=== PATIENT | female | born 1935 | race African-American/Black ===

== ENCOUNTER 2017-09-28 18:15 | Inpatient (IN) | payer MEDICARE, MEDICAID ==
[~2017-09-28] VITALS: Ht 160 cm; Wt 90.7 kg
[~2017-09-28 18:15] MED LIST: ACET-2853 PO; ALBU18HF2 IH; ALBU2.5V13 IH; ASCO500C15 PO; ATOR20TA PO; BUDE6HFA IH; CORTIZONE TP; CRAN450T10 PO; DIGO250T4 PO; DILTIAZEM; DOCU250C14 PO; FURO80TA87 PO; LISI10TA5 PO; MAGN500C4 PO; MONT10TA21 PO; MULT1TAB11 PO; ROFL500T PO; TIOT18CA3; TIOT18CA3 IH; TRIA15OI8 TP; WARF4TAB40 PO
[2017-09-28 20:00] VITALS: BP 148/60
[2017-09-28 20:10] VITALS: BP 148/60
[2017-09-28] MEDS: MIRTAZAPINE 15MG TABLET PO SCH (21:14)
[2017-09-28] MEDS: SILDENAFIL CITRATE 20MG TABLET PO SCH (21:14)
[2017-09-28] MEDS: FAMOTIDINE 20MG TABLET PO SCH (21:14)
[2017-09-28] MEDS: IPRATROPIUM/ALBUTEROL 0.5-3(2.5)MG/3ML NEB HHN SCH (21:20)
[2017-09-28] MEDS: DILTIAZEM HCL 90MG TABLET PO SCH (23:49)
[2017-09-29] MEDS: IPRATROPIUM/ALBUTEROL 0.5-3(2.5)MG/3ML NEB HHN SCH ×6 (00:24→21:46)
[2017-09-29] MEDS: SILDENAFIL CITRATE 20MG TABLET PO SCH ×3 (05:13→21:17)
[2017-09-29] MEDS: DILTIAZEM HCL 90MG TABLET PO SCH ×4 (05:14→23:41)
[2017-09-29 06:20] LABS: INR 2.1; PROTHROMBIN TIME 22.1 sec (9.4-11.6)
[2017-09-29 06:31] LABS: HEMATOCRIT 38.2 % (36.0-48.0); HEMOGLOBIN 12.1 g/dL (12.0-16.0); MEAN CORPUSCULAR HEMOGLOBIN 27.5 pg (28.0-32.0); MEAN CORPUSCULAR VOLUME 86.5 fL (81.0-99.0); PLATELET 275 x1000/uL (130-400); RED BLOOD CELL COUNT 4.42 mill/uL (4.2-5.4); RED CELL DISTRIBUTION WIDTH 15.7 % (11.6-14.6)
[2017-09-29 07:24] LABS: CHLORIDE 92 mEq/L (98-107)
[2017-09-29 07:39] LABS: PREALBUMIN 25.5 mg/dL (20.0-40.0)
[2017-09-29 08:00] VITALS: BP 130/58
[2017-09-29] MEDS ORDERED: PREDNISONE 20MG TABLET PO SCH (09:00)
[2017-09-29] MEDS: FISH OIL/OMEGA-3 FATTY ACIDS 1000MG CAPSULE PO SCH (09:08)
[2017-09-29] MEDS: ASCORBIC ACID 500 MG TABLET PO SCH (09:08)
[2017-09-29] MEDS: FUROSEMIDE 80MG TABLET PO SCH (09:08)
[2017-09-29] MEDS: FERROUS SULFATE 325MG TABLET PO SCH ×3 (09:08→17:42)
[2017-09-29] MEDS: PREDNISONE 20MG TABLET PO SCH (09:09)
[2017-09-29] MEDS: POTASSIUM CHLORIDE 20MEQ TABLET SR PO SCH (09:09)
[2017-09-29] MEDS: LORATADINE 10MG TABLET PO SCH (09:10)
[2017-09-29] MEDS: FAMOTIDINE 20MG TABLET PO SCH ×2 (09:10→21:17)
[2017-09-29] MEDS: ACETAMINOPHEN 650MG/20.3ML UDC PO PRN (16:01)
[2017-09-29] MEDS: WARFARIN SODIUM 4MG TABLET PO SCH (17:45)
[2017-09-29] MEDS: DIGOXIN 125MCG TABLET PO SCH (17:45)
[2017-09-29 20:00] VITALS: BP 145/50
[2017-09-29] MEDS: MIRTAZAPINE 15MG TABLET PO SCH (21:17)
[2017-09-30] MEDS: IPRATROPIUM/ALBUTEROL 0.5-3(2.5)MG/3ML NEB HHN SCH ×5 (01:51→21:45)
[2017-09-30] MEDS: SILDENAFIL CITRATE 20MG TABLET PO SCH ×3 (05:15→22:17)
[2017-09-30] MEDS: DILTIAZEM HCL 90MG TABLET PO SCH ×3 (05:16→17:15)
[2017-09-30 06:19] VITALS: BP 128/49
[2017-09-30 06:42] LABS: INR 2.4; PROTHROMBIN TIME 24.7 sec (9.4-11.6)
[2017-09-30 08:06] VITALS: BP 135/44
[2017-09-30] MEDS: FISH OIL/OMEGA-3 FATTY ACIDS 1000MG CAPSULE PO SCH (08:35)
[2017-09-30] MEDS: ASCORBIC ACID 500 MG TABLET PO SCH (08:35)
[2017-09-30] MEDS: FAMOTIDINE 20MG TABLET PO SCH ×2 (08:35→22:17)
[2017-09-30] MEDS: LORATADINE 10MG TABLET PO SCH (08:36)
[2017-09-30] MEDS: POTASSIUM CHLORIDE 20MEQ TABLET SR PO SCH (08:36)
[2017-09-30] MEDS: PREDNISONE 20MG TABLET PO SCH (08:36)
[2017-09-30] MEDS: FERROUS SULFATE 325MG TABLET PO SCH ×3 (08:36→16:29)
[2017-09-30] MEDS: FUROSEMIDE 80MG TABLET PO SCH (08:36)
[2017-09-30] MEDS: WARFARIN SODIUM 4MG TABLET PO SCH (17:16)
[2017-09-30] MEDS: DIGOXIN 125MCG TABLET PO SCH (17:17)
[2017-09-30 20:00] VITALS: BP 154/63
[2017-09-30] MEDS: MIRTAZAPINE 15MG TABLET PO SCH (22:17)
[2017-10-01] MEDS: IPRATROPIUM/ALBUTEROL 0.5-3(2.5)MG/3ML NEB HHN SCH ×6 (01:07→21:19)
[2017-10-01] MEDS: DILTIAZEM HCL 90MG TABLET PO SCH ×4 (06:00→17:24)
[2017-10-01] MEDS: SILDENAFIL CITRATE 20MG TABLET PO SCH ×3 (06:25→21:39)
[2017-10-01 06:45] LABS: INR 2.7; PROTHROMBIN TIME 27.8 sec (9.4-11.6)
[2017-10-01 06:58] LABS: CHLORIDE 90 mEq/L (98-107)
[2017-10-01 07:15] LABS: PHOSPHORUS 3.1 mg/dL (2.5-4.9)
[2017-10-01 07:24] LABS: HEMATOCRIT. 35.7 % (36.0-48.0); HEMOGLOBIN. 11.5 g/dL (12.0-16.0); MEAN CORPUSCULAR HEMOGLOBIN 27.8 pg (28.0-32.0); MEAN CORPUSCULAR VOLUME 86.8 fL (81.0-99.0); MEAN PLATELET VOLUME 8.9 fl (7.4-10.4); PLATELET 299 x1000/uL (130-400); RED BLOOD CELL COUNT 4.12 mill/uL (4.2-5.4); RED CELL DISTRIBUTION WIDTH 15.3 % (11.6-14.6)
[2017-10-01 07:27] LABS: BG CARBOXYHEMOGLOBIN 0.9 % (0.5-1.5); BG DEOXYHEMOGLOBIN 1.7 % (0.0-5.0); BG HCO3 ACT 47.6 mmol/L (22.0-26.0); BG METHEMOGLOBIN 0.3 % (0.0-1.5); BG OXYGEN SATURATION 98.3 % (92.0-98.5); BG OXYHEMOGLOBIN 97.1 % (94.0-97.0); BG PCO2 83.9 mmHg (35.0-45.0); BG PH 7.372 (7.350-7.450); BG PO2 108.3 mmHg (75.0-100.0); BG SAMPLE SITE RIGHT RADIAL; BG TOTAL HEMOGLOBIN 13.3 g/dL (12.0-18.0); BG VENT MODE NASAL CANNULA
[2017-10-01 08:00] VITALS: BP 145/60
[2017-10-01 08:20] LABS: VITAMIN B12 SERUM > 2000.0 pg/mL (211-911)
[2017-10-01] MEDS: PREDNISONE 20MG TABLET PO SCH (08:52)
[2017-10-01] MEDS: ASCORBIC ACID 500 MG TABLET PO SCH (08:53)
[2017-10-01] MEDS: FUROSEMIDE 80MG TABLET PO SCH (08:53)
[2017-10-01] MEDS: FERROUS SULFATE 325MG TABLET PO SCH ×3 (08:53→17:23)
[2017-10-01] MEDS: LORATADINE 10MG TABLET PO SCH (08:53)
[2017-10-01] MEDS: FAMOTIDINE 20MG TABLET PO SCH ×2 (08:53→21:39)
[2017-10-01] MEDS: FISH OIL/OMEGA-3 FATTY ACIDS 1000MG CAPSULE PO SCH (08:53)
[2017-10-01] MEDS: POTASSIUM CHLORIDE 20MEQ TABLET SR PO SCH (08:53)
[2017-10-01 10:20] LABS: FERRITIN 200 ng/mL (10-291)
[2017-10-01] MEDS: MUPIROCIN 2% OINT 22GM NS SCH ×2 (13:50→21:39)
[2017-10-01] MEDS: DIGOXIN 125MCG TABLET PO SCH (17:23)
[2017-10-01] MEDS ORDERED: WARFARIN SODIUM 4MG TABLET PO NR (18:00)
[2017-10-01 18:06] LABS: CLARITY URINE CLEAR (CLEAR); COLOR URINE YELLOW (YELLOW); KETONES URINE NEGATIVE (NEGATIVE); LEUKOCYTE ESTERASE URINE NEGATIVE (NEGATIVE); NITRITE URINE NEGATIVE (NEGATIVE); OCCULT BLOOD URINE 1+ (NEGATIVE); PROTEIN URINE 2+ (NEGATIVE); SPECIFIC GRAVITY URINE 1.022 (1.005-1.030); UROBILINOGEN URINE 0.2 E.U./dL (0.2-1.0)
[2017-10-01 20:00] VITALS: BP 113/48
[2017-10-01] MEDS: MIRTAZAPINE 15MG TABLET PO SCH (21:39)
[2017-10-02 01:00] LABS: PLATELET ESTIMATE NORMAL
[2017-10-02] MEDS: IPRATROPIUM/ALBUTEROL 0.5-3(2.5)MG/3ML NEB HHN SCH ×6 (01:00→21:15)
[2017-10-02] MEDS: DILTIAZEM HCL 90MG TABLET PO SCH ×3 (06:00→12:00)
[2017-10-02] MEDS: SILDENAFIL CITRATE 20MG TABLET PO SCH ×3 (06:45→22:08)
[2017-10-02 06:51] LABS: HEMATOCRIT. 35.6 % (36.0-48.0); HEMOGLOBIN. 11.1 g/dL (12.0-16.0); MEAN CORPUSCULAR HEMOGLOBIN 27.1 pg (28.0-32.0); MEAN CORPUSCULAR VOLUME 86.8 fL (81.0-99.0); PLATELET 300 x1000/uL (130-400)
[2017-10-02 06:56] LABS: INR 3.1; PROTHROMBIN TIME 32.8 sec (9.4-11.6)
[2017-10-02 07:15] LABS: CHLORIDE 89 mEq/L (98-107)
[2017-10-02 08:00] VITALS: BP 121/65
[2017-10-02] MEDS: FISH OIL/OMEGA-3 FATTY ACIDS 1000MG CAPSULE PO SCH (09:57)
[2017-10-02] MEDS: MUPIROCIN 2% OINT 22GM NS SCH ×2 (09:57→22:05)
[2017-10-02] MEDS: FAMOTIDINE 20MG TABLET PO SCH (09:57)
[2017-10-02] MEDS: POTASSIUM CHLORIDE 20MEQ TABLET SR PO SCH (09:57)
[2017-10-02] MEDS: PREDNISONE 20MG TABLET PO SCH (09:57)
[2017-10-02] MEDS: FERROUS SULFATE 325MG TABLET PO SCH ×3 (09:58→17:31)
[2017-10-02] MEDS: ASCORBIC ACID 500 MG TABLET PO SCH (09:58)
[2017-10-02] MEDS: LORATADINE 10MG TABLET PO SCH (09:58)
[2017-10-02] MEDS: FUROSEMIDE 80MG TABLET PO SCH (09:59)
[2017-10-02 10:49] LABS: HEPATITIS B SURFACE ANTIGEN NEGATIVE
[2017-10-02 11:16] LABS: HEPATITIS B CORE AB IGM NEGATIVE
[2017-10-02 11:18] LABS: HEPATITIS A AB IGM NEGATIVE (NEGATIVE)
[2017-10-02] MEDS: LACTULOSE 20G/30ML UDC PO SCH ×3 (13:23→21:00)
[2017-10-02] MEDS ORDERED: LEVOFLOXACIN 500MG TABLET PO SCH (14:00)
[2017-10-02 14:05] LABS: PLATELET ESTIMATE NORMAL
[2017-10-02] MEDS ORDERED: DILTIAZEM HCL 120MG CAPSULE SR 12HR PO SCH (17:00)
[2017-10-02] MEDS: DOCUSATE SODIUM 100MG CAPSULE PO SCH (17:30)
[2017-10-02] MEDS: DIGOXIN 125MCG TABLET PO SCH (17:31)
[2017-10-02] MEDS ORDERED: WARFARIN SODIUM 3MG TABLET PO NR (18:00)
[2017-10-02] MEDS: DILTIAZEM HCL 120MG CAPSULE SR 12HR PO SCH (18:30)
[2017-10-02 20:00] VITALS: BP 135/74
[2017-10-02] MEDS: POLYETHYLENE GLYCOL 3350 (17GM) 1 DOSE PACK PO SCH (21:00)
[2017-10-02] MEDS: MIRTAZAPINE 15MG TABLET PO SCH (22:07)
[2017-10-03] MEDS: IPRATROPIUM/ALBUTEROL 0.5-3(2.5)MG/3ML NEB HHN SCH ×6 (01:05→20:28)
[2017-10-03] MEDS: DILTIAZEM HCL 120MG CAPSULE SR 12HR PO SCH ×2 (06:36→17:14)
[2017-10-03] MEDS: SILDENAFIL CITRATE 20MG TABLET PO SCH ×3 (06:37→21:01)
[2017-10-03 07:23] LABS: INR 3.2; PROTHROMBIN TIME 32.8 sec (9.4-11.6)
[2017-10-03 07:34] LABS: HEMATOCRIT. 37.9 % (36.0-48.0); HEMOGLOBIN. 11.9 g/dL (12.0-16.0); MEAN CORPUSCULAR HEMOGLOBIN 27.3 pg (28.0-32.0); MEAN CORPUSCULAR VOLUME 87.2 fL (81.0-99.0); MEAN PLATELET VOLUME 9.1 fl (7.4-10.4); PLATELET 280 x1000/uL (130-400); RED BLOOD CELL COUNT 4.35 mill/uL (4.2-5.4); RED CELL DISTRIBUTION WIDTH 16.1 % (11.6-14.6)
[2017-10-03 08:00] VITALS: BP 146/68
[2017-10-03] MEDS: FUROSEMIDE 80MG TABLET PO SCH (08:26)
[2017-10-03] MEDS: ASCORBIC ACID 500 MG TABLET PO SCH (08:26)
[2017-10-03] MEDS: POTASSIUM CHLORIDE 20MEQ TABLET SR PO SCH (08:26)
[2017-10-03] MEDS: FERROUS SULFATE 325MG TABLET PO SCH ×3 (08:26→17:11)
[2017-10-03] MEDS: FAMOTIDINE 20MG TABLET PO SCH (08:26)
[2017-10-03] MEDS: FISH OIL/OMEGA-3 FATTY ACIDS 1000MG CAPSULE PO SCH (08:26)
[2017-10-03] MEDS: LORATADINE 10MG TABLET PO SCH (08:27)
[2017-10-03] MEDS: DOCUSATE SODIUM 100MG CAPSULE PO SCH ×2 (08:27→17:11)
[2017-10-03 08:42] LABS: CHLORIDE 89 mEq/L (98-107)
[2017-10-03] MEDS: MUPIROCIN 2% OINT 22GM NS SCH ×2 (09:33→21:01)
[2017-10-03 10:11] LABS: PLATELET ESTIMATE NORMAL
[2017-10-03] MEDS: LEVOFLOXACIN 250MG TABLET PO SCH (11:41)
[2017-10-03] MEDS ORDERED: POTASSIUM CHLORIDE 20MEQ TABLET SR PO SCH (14:15)
[2017-10-03] MEDS: DIGOXIN 125MCG TABLET PO SCH (17:14)
[2017-10-03] MEDS ORDERED: WARFARIN SODIUM 2MG TABLET PO NR (18:00)
[2017-10-03 20:00] VITALS: BP 135/63
[2017-10-03] MEDS ORDERED: VANCOMYCIN 2,000 MG in SODIUM CHLORIDE 0.9% 500 ML IV NR (20:00)
[2017-10-03] MEDS: POLYETHYLENE GLYCOL 3350 (17GM) 1 DOSE PACK PO SCH (21:00)
[2017-10-03] MEDS: MIRTAZAPINE 15MG TABLET PO SCH (21:00)
[2017-10-04] MEDS: IPRATROPIUM/ALBUTEROL 0.5-3(2.5)MG/3ML NEB HHN SCH ×6 (01:06→21:26)
[2017-10-04] MEDS: SILDENAFIL CITRATE 20MG TABLET PO SCH ×3 (05:34→21:17)
[2017-10-04] MEDS: DILTIAZEM HCL 120MG CAPSULE SR 12HR PO SCH ×2 (06:33→19:25)
[2017-10-04 06:42] LABS: INR 2.5; PROTHROMBIN TIME 26.5 sec (9.4-11.6)
[2017-10-04 08:00] VITALS: BP 107/55
[2017-10-04] MEDS: DOCUSATE SODIUM 100MG CAPSULE PO SCH ×2 (08:50→17:50)
[2017-10-04] MEDS: FERROUS SULFATE 325MG TABLET PO SCH ×3 (08:50→17:52)
[2017-10-04] MEDS: LORATADINE 10MG TABLET PO SCH (08:51)
[2017-10-04] MEDS: FUROSEMIDE 80MG TABLET PO SCH (08:51)
[2017-10-04] MEDS: ASCORBIC ACID 500 MG TABLET PO SCH (08:51)
[2017-10-04] MEDS: FAMOTIDINE 20MG TABLET PO SCH (08:51)
[2017-10-04] MEDS: POTASSIUM CHLORIDE 20MEQ TABLET SR PO SCH (08:51)
[2017-10-04] MEDS: FISH OIL/OMEGA-3 FATTY ACIDS 1000MG CAPSULE PO SCH (08:51)
[2017-10-04] MEDS: MUPIROCIN 2% OINT 22GM NS SCH ×2 (08:54→21:16)
[2017-10-04] MEDS ORDERED: VANCOMYCIN 500 MG PREMIX 100 ML IV SCH (09:00)
[2017-10-04] MEDS: LEVOFLOXACIN 250MG TABLET PO SCH (11:55)
[2017-10-04] MEDS: DIGOXIN 125MCG TABLET PO SCH (17:52)
[2017-10-04] MEDS ORDERED: WARFARIN SODIUM 4MG TABLET PO SCH (18:00)
[2017-10-04 20:00] VITALS: BP 121/55
[2017-10-04 20:40] VITALS: BP 119/60
[2017-10-04] MEDS: POLYETHYLENE GLYCOL 3350 (17GM) 1 DOSE PACK PO SCH (21:00)
[2017-10-04] MEDS: MIRTAZAPINE 15MG TABLET PO SCH (21:16)
[2017-10-05] MEDS ORDERED: VANCOMYCIN 750 MG PREMIX 150 ML IV SCH
[2017-10-05] MEDS: IPRATROPIUM/ALBUTEROL 0.5-3(2.5)MG/3ML NEB HHN SCH ×6 (00:22→20:14)
[2017-10-05] MEDS: ACETAMINOPHEN 650MG/20.3ML UDC PO PRN (02:29)
[2017-10-05] MEDS ORDERED: DILTIAZEM HCL 60MG TABLET PO SCH (06:00)
[2017-10-05] MEDS: SILDENAFIL CITRATE 20MG TABLET PO SCH ×3 (06:12→21:12)
[2017-10-05] MEDS: DILTIAZEM HCL 120MG CAPSULE SR 12HR PO SCH ×3 (06:13→21:12)
[2017-10-05 06:43] LABS: CHLORIDE 93 mEq/L (98-107)
[2017-10-05 07:04] LABS: HEMOGLOBIN. 11.1 g/dL (12.0-16.0); MEAN CORPUSCULAR HEMOGLOBIN 27.8 pg (28.0-32.0); MEAN CORPUSCULAR VOLUME 87.4 fL (81.0-99.0); MEAN PLATELET VOLUME 8.6 fl (7.4-10.4); PLATELET 194 x1000/uL (130-400); PROTHROMBIN TIME 20.3 sec (9.4-11.6); RED BLOOD CELL COUNT 4.01 mill/uL (4.2-5.4); RED CELL DISTRIBUTION WIDTH 17.1 % (11.6-14.6)
[2017-10-05 08:10] VITALS: BP 132/59
[2017-10-05] MEDS: DOCUSATE SODIUM 100MG CAPSULE PO SCH ×2 (08:24→17:28)
[2017-10-05] MEDS: FERROUS SULFATE 325MG TABLET PO SCH ×3 (08:24→17:28)
[2017-10-05] MEDS: LORATADINE 10MG TABLET PO SCH (08:24)
[2017-10-05] MEDS: FAMOTIDINE 20MG TABLET PO SCH (08:24)
[2017-10-05] MEDS: ASCORBIC ACID 500 MG TABLET PO SCH (08:24)
[2017-10-05] MEDS: FISH OIL/OMEGA-3 FATTY ACIDS 1000MG CAPSULE PO SCH (08:24)
[2017-10-05] MEDS: FUROSEMIDE 80MG TABLET PO SCH (08:24)
[2017-10-05] MEDS: POTASSIUM CHLORIDE 20MEQ TABLET SR PO SCH (08:24)
[2017-10-05] MEDS: MUPIROCIN 2% OINT 22GM NS SCH ×2 (08:24→21:10)
[2017-10-05 10:21] LABS: PLATELET ESTIMATE NORMAL
[2017-10-05 13:50] VITALS: BP 132/94
[2017-10-05 14:12] LABS: 25-HYDROXY VITAMIN D3 28 ng/mL (.)
[2017-10-05 16:50] VITALS: BP 135/45
[2017-10-05] MEDS: DIGOXIN 125MCG TABLET PO SCH (17:28)
[2017-10-05] MEDS: IPRATROPIUM/ALBUTEROL 0.5-3(2.5)MG/3ML NEB HHN PRN (17:47)
[2017-10-05] MEDS ORDERED: WARFARIN SODIUM 7.5MG TABLET PO SCH (18:00)
[2017-10-05 20:00] VITALS: BP 123/62
[2017-10-05] MEDS: POLYETHYLENE GLYCOL 3350 (17GM) 1 DOSE PACK PO SCH (21:00)
[2017-10-05] MEDS: MIRTAZAPINE 15MG TABLET PO SCH (21:11)
[2017-10-06 00:48] VITALS: BP 158/75
[2017-10-06] MEDS: IPRATROPIUM/ALBUTEROL 0.5-3(2.5)MG/3ML NEB HHN SCH ×6 (01:15→21:02)
[2017-10-06 06:04] VITALS: BP 136/53
[2017-10-06] MEDS: DILTIAZEM HCL 120MG CAPSULE SR 12HR PO SCH ×3 (06:04→22:18)
[2017-10-06] MEDS: SILDENAFIL CITRATE 20MG TABLET PO SCH ×3 (06:04→22:19)
[2017-10-06 07:00] VITALS: BP 135/45
[2017-10-06 07:36] LABS: INR 2.3; PROTHROMBIN TIME 24.1 sec (9.4-11.6)
[2017-10-06] MEDS: ACETAMINOPHEN 650MG/20.3ML UDC PO PRN (07:39)
[2017-10-06 07:54] LABS: HEMATOCRIT. 34.5 % (36.0-48.0); HEMOGLOBIN. 11.1 g/dL (12.0-16.0); MEAN CORPUSCULAR HEMOGLOBIN 28.2 pg (28.0-32.0); MEAN CORPUSCULAR VOLUME 87.8 fL (81.0-99.0); MEAN PLATELET VOLUME 9.2 fl (7.4-10.4); PLATELET 200 x1000/uL (130-400); RED BLOOD CELL COUNT 3.94 mill/uL (4.2-5.4); RED CELL DISTRIBUTION WIDTH 17.3 % (11.6-14.6)
[2017-10-06 08:08] LABS: CHLORIDE 94 mEq/L (98-107)
[2017-10-06] MEDS: POTASSIUM CHLORIDE 20MEQ TABLET SR PO SCH (08:54)
[2017-10-06] MEDS: FISH OIL/OMEGA-3 FATTY ACIDS 1000MG CAPSULE PO SCH (08:54)
[2017-10-06] MEDS: LORATADINE 10MG TABLET PO SCH (08:54)
[2017-10-06] MEDS: FUROSEMIDE 80MG TABLET PO SCH (08:54)
[2017-10-06] MEDS: FERROUS SULFATE 325MG TABLET PO SCH ×3 (08:54→17:49)
[2017-10-06] MEDS: DOCUSATE SODIUM 100MG CAPSULE PO SCH ×2 (08:54→17:49)
[2017-10-06] MEDS: FAMOTIDINE 20MG TABLET PO SCH (08:54)
[2017-10-06] MEDS: ASCORBIC ACID 500 MG TABLET PO SCH (08:55)
[2017-10-06 10:41] LABS: PLATELET ESTIMATE NORMAL
[2017-10-06 13:45] VITALS: BP 126/56
[2017-10-06 17:20] VITALS: BP 143/63
[2017-10-06] MEDS: DIGOXIN 125MCG TABLET PO SCH (17:49)
[2017-10-06] MEDS ORDERED: WARFARIN SODIUM 3MG TABLET PO SCH (18:00)
[2017-10-06 20:00] VITALS: BP 149/71
[2017-10-06] MEDS: POLYETHYLENE GLYCOL 3350 (17GM) 1 DOSE PACK PO SCH (21:00)
[2017-10-06] MEDS: MIRTAZAPINE 15MG TABLET PO SCH (22:18)
[2017-10-07] MEDS: IPRATROPIUM/ALBUTEROL 0.5-3(2.5)MG/3ML NEB HHN SCH ×7 (00:37→19:47)
[2017-10-07] MEDS: DILTIAZEM HCL 120MG CAPSULE SR 12HR PO SCH ×3 (06:11→22:09)
[2017-10-07] MEDS: SILDENAFIL CITRATE 20MG TABLET PO SCH ×3 (06:12→22:09)
[2017-10-07 06:50] LABS: PROTHROMBIN TIME 42.1 sec (9.4-11.6)
[2017-10-07 07:24] LABS: INR 4.1
[2017-10-07 08:03] VITALS: BP 151/57
[2017-10-07] MEDS: POTASSIUM CHLORIDE 20MEQ TABLET SR PO SCH (08:49)
[2017-10-07] MEDS: DOCUSATE SODIUM 100MG CAPSULE PO SCH ×2 (08:50→17:57)
[2017-10-07] MEDS: FAMOTIDINE 20MG TABLET PO SCH (08:50)
[2017-10-07] MEDS: FISH OIL/OMEGA-3 FATTY ACIDS 1000MG CAPSULE PO SCH (08:50)
[2017-10-07] MEDS: FERROUS SULFATE 325MG TABLET PO SCH ×3 (08:50→17:57)
[2017-10-07] MEDS: ASCORBIC ACID 500 MG TABLET PO SCH (08:50)
[2017-10-07] MEDS: LORATADINE 10MG TABLET PO SCH (08:51)
[2017-10-07] MEDS: FUROSEMIDE 80MG TABLET PO SCH (08:52)
[2017-10-07 11:43] LABS: HEMOGLOBIN. 11.1 g/dL (12.0-16.0); MEAN CORPUSCULAR HEMOGLOBIN 28.1 pg (28.0-32.0); MEAN CORPUSCULAR VOLUME 88.4 fL (81.0-99.0); MEAN PLATELET VOLUME 9.5 fl (7.4-10.4); PLATELET 208 x1000/uL (130-400); RED BLOOD CELL COUNT 3.96 mill/uL (4.2-5.4); RED CELL DISTRIBUTION WIDTH 17.4 % (11.6-14.6)
[2017-10-07] MEDS ORDERED: ACETAMINOPHEN 325MG TABLET PO PRN (13:45)
[2017-10-07] MEDS: DIGOXIN 125MCG TABLET PO SCH (17:57)
[2017-10-07] MEDS: IPRATROPIUM/ALBUTEROL 0.5-3(2.5)MG/3ML NEB HHN PRN (18:50)
[2017-10-07 19:59] LABS: PLATELET ESTIMATE NORMAL
[2017-10-07 20:00] VITALS: BP 141/63
[2017-10-07] MEDS: POLYETHYLENE GLYCOL 3350 (17GM) 1 DOSE PACK PO SCH (22:08)
[2017-10-07] MEDS: MIRTAZAPINE 15MG TABLET PO SCH (22:09)
[2017-10-08] MEDS: IPRATROPIUM/ALBUTEROL 0.5-3(2.5)MG/3ML NEB HHN SCH ×6 (00:15→20:57)
[2017-10-08] MEDS: SILDENAFIL CITRATE 20MG TABLET PO SCH ×3 (06:25→22:33)
[2017-10-08] MEDS: DILTIAZEM HCL 120MG CAPSULE SR 12HR PO SCH ×3 (06:26→22:00)
[2017-10-08 07:28] LABS: INR 4.1
[2017-10-08 08:00] VITALS: BP 112/66
[2017-10-08] MEDS: DOCUSATE SODIUM 100MG CAPSULE PO SCH ×2 (09:00→17:33)
[2017-10-08] MEDS: ASCORBIC ACID 500 MG TABLET PO SCH (09:01)
[2017-10-08] MEDS: LORATADINE 10MG TABLET PO SCH (09:02)
[2017-10-08] MEDS: POTASSIUM CHLORIDE 20MEQ TABLET SR PO SCH (09:02)
[2017-10-08] MEDS: FUROSEMIDE 80MG TABLET PO SCH (09:02)
[2017-10-08] MEDS: FAMOTIDINE 20MG TABLET PO SCH (09:02)
[2017-10-08] MEDS: FISH OIL/OMEGA-3 FATTY ACIDS 1000MG CAPSULE PO SCH (09:03)
[2017-10-08] MEDS: FERROUS SULFATE 325MG TABLET PO SCH ×3 (09:05→17:32)
[2017-10-08] MEDS ORDERED: ERGOCALCIFEROL 50000UNITS CAPSULE PO SCH (15:00)
[2017-10-08] MEDS: DIGOXIN 125MCG TABLET PO SCH (17:33)
[2017-10-08 20:00] VITALS: BP 129/65
[2017-10-08] MEDS: MIRTAZAPINE 15MG TABLET PO SCH (22:32)
[2017-10-08] MEDS: POLYETHYLENE GLYCOL 3350 (17GM) 1 DOSE PACK PO SCH (22:33)
[2017-10-09] MEDS: IPRATROPIUM/ALBUTEROL 0.5-3(2.5)MG/3ML NEB HHN SCH ×5 (00:36→20:48)
[2017-10-09] MEDS: DILTIAZEM HCL 120MG CAPSULE SR 12HR PO SCH ×2 (06:13→14:05)
[2017-10-09] MEDS: SILDENAFIL CITRATE 20MG TABLET PO SCH ×3 (06:13→21:30)
[2017-10-09 07:02] LABS: PROTHROMBIN TIME 30.8 sec (9.4-11.6)
[2017-10-09 07:05] LABS: HEMATOCRIT. 33.3 % (36.0-48.0); HEMOGLOBIN. 10.7 g/dL (12.0-16.0); MEAN CORPUSCULAR HEMOGLOBIN 28.3 pg (28.0-32.0); MEAN CORPUSCULAR VOLUME 87.8 fL (81.0-99.0); MEAN PLATELET VOLUME 9.1 fl (7.4-10.4); PLATELET 209 x1000/uL (130-400); RED BLOOD CELL COUNT 3.79 mill/uL (4.2-5.4)
[2017-10-09 08:00] VITALS: BP 126/63
[2017-10-09 08:22] LABS: CHLORIDE 92 mEq/L (98-107)
[2017-10-09 08:47] LABS: PHOSPHORUS 3.6 mg/dL (2.5-4.9)
[2017-10-09] MEDS: POTASSIUM CHLORIDE 20MEQ TABLET SR PO SCH (09:03)
[2017-10-09] MEDS: FERROUS SULFATE 325MG TABLET PO SCH ×3 (09:03→17:45)
[2017-10-09] MEDS: FUROSEMIDE 80MG TABLET PO SCH (09:03)
[2017-10-09] MEDS: LORATADINE 10MG TABLET PO SCH (09:03)
[2017-10-09] MEDS: FAMOTIDINE 20MG TABLET PO SCH (09:03)
[2017-10-09] MEDS: FISH OIL/OMEGA-3 FATTY ACIDS 1000MG CAPSULE PO SCH (09:03)
[2017-10-09] MEDS: DOCUSATE SODIUM 100MG CAPSULE PO SCH ×2 (09:03→17:46)
[2017-10-09] MEDS: ASCORBIC ACID 500 MG TABLET PO SCH (09:07)
[2017-10-09 11:04] LABS: PLATELET ESTIMATE NORMAL
[2017-10-09] MEDS: DIGOXIN 125MCG TABLET PO SCH (17:47)
[2017-10-09] MEDS ORDERED: WARFARIN SODIUM 3MG TABLET PO SCH (18:00)
[2017-10-09 20:00] VITALS: BP 136/70
[2017-10-09] MEDS ORDERED: DIGOXIN 125MCG TABLET PO NR (20:30)
[2017-10-09] MEDS: POLYETHYLENE GLYCOL 3350 (17GM) 1 DOSE PACK PO SCH (21:00)
[2017-10-09] MEDS: MIRTAZAPINE 15MG TABLET PO SCH (21:30)
[2017-10-10] MEDS: IPRATROPIUM/ALBUTEROL 0.5-3(2.5)MG/3ML NEB HHN SCH ×6 (00:31→21:33)
[2017-10-10] MEDS: SILDENAFIL CITRATE 20MG TABLET PO SCH ×3 (05:20→21:25)
[2017-10-10 06:39] LABS: INR 2.5; PROTHROMBIN TIME 26.6 sec (9.4-11.6)
[2017-10-10 07:51] LABS: T4 FREE 0.91 ng/dL (0.76-1.46)
[2017-10-10 07:52] LABS: DIGOXIN 1.7 ng/mL (0.9-2.0)
[2017-10-10 08:00] VITALS: BP 146/71
[2017-10-10] MEDS: FISH OIL/OMEGA-3 FATTY ACIDS 1000MG CAPSULE PO SCH (08:47)
[2017-10-10] MEDS: DILTIAZEM HCL 360MG CAPSULE SA 24HR PO SCH (08:47)
[2017-10-10] MEDS: FAMOTIDINE 20MG TABLET PO SCH (08:47)
[2017-10-10] MEDS: LORATADINE 10MG TABLET PO SCH (08:47)
[2017-10-10] MEDS: FERROUS SULFATE 325MG TABLET PO SCH ×3 (08:47→17:24)
[2017-10-10] MEDS: POTASSIUM CHLORIDE 20MEQ TABLET SR PO SCH (08:47)
[2017-10-10] MEDS: DOCUSATE SODIUM 100MG CAPSULE PO SCH ×2 (08:47→17:24)
[2017-10-10] MEDS: ASCORBIC ACID 500 MG TABLET PO SCH (08:47)
[2017-10-10] MEDS: FUROSEMIDE 80MG TABLET PO SCH (08:54)
[2017-10-10 13:50] VITALS: BP 133/61
[2017-10-10 17:20] VITALS: BP 135/53
[2017-10-10] MEDS ORDERED: WARFARIN SODIUM 5MG TABLET PO NR (18:00)
[2017-10-10] MEDS ORDERED: DIGOXIN 250MCG TABLET PO SCH (18:00)
[2017-10-10 20:00] VITALS: BP 146/71
[2017-10-10] MEDS: POLYETHYLENE GLYCOL 3350 (17GM) 1 DOSE PACK PO SCH (21:00)
[2017-10-10] MEDS: MIRTAZAPINE 15MG TABLET PO SCH (21:24)
[2017-10-11] MEDS: IPRATROPIUM/ALBUTEROL 0.5-3(2.5)MG/3ML NEB HHN SCH ×4 (01:18→11:49)
[2017-10-11] MEDS: SILDENAFIL CITRATE 20MG TABLET PO SCH ×2 (05:47→13:54)
[2017-10-11 07:16] LABS: INR 3.2; PROTHROMBIN TIME 33.5 sec (9.4-11.6)
[2017-10-11 08:09] VITALS: BP 136/67
[2017-10-11] MEDS: FUROSEMIDE 80MG TABLET PO SCH (08:49)
[2017-10-11] MEDS: FERROUS SULFATE 325MG TABLET PO SCH ×2 (08:49→13:39)
[2017-10-11] MEDS: POTASSIUM CHLORIDE 20MEQ TABLET SR PO SCH (08:49)
[2017-10-11] MEDS: DOCUSATE SODIUM 100MG CAPSULE PO SCH (08:49)
[2017-10-11] MEDS: FISH OIL/OMEGA-3 FATTY ACIDS 1000MG CAPSULE PO SCH (08:49)
[2017-10-11] MEDS: ASCORBIC ACID 500 MG TABLET PO SCH (08:49)
[2017-10-11] MEDS: DILTIAZEM HCL 360MG CAPSULE SA 24HR PO SCH (08:50)
[2017-10-11] MEDS: LORATADINE 10MG TABLET PO SCH (08:50)
[2017-10-11] MEDS: FAMOTIDINE 20MG TABLET PO SCH (08:52)
[2017-10-11 12:50] VITALS: BP 131/60
[2017-10-11] MEDS ORDERED: WARFARIN SODIUM 3MG TABLET PO NR (18:00)
[2017-10-11] MEDS ORDERED: ALBU2.5V13 NEB (19:55)
[2017-10-11] MEDS ORDERED: ALBU18HF2 IH (19:56)
[2017-10-11] MEDS ORDERED: MONT10TA21 PO (19:59)
[2017-10-11] MEDS ORDERED: FURO80TA87 PO (19:59)
[2017-10-11] MEDS ORDERED: WARF4TAB40 PO (19:59)
[2017-10-11] MEDS ORDERED: ATOR20TA PO (19:59)
[2017-10-11] MEDS ORDERED: LISI10TA5 PO (19:59)
[2017-10-11] MEDS ORDERED: [UNRECOGNIZED DRUG - CODE] IJ (19:59)
[2017-10-11] MEDS ORDERED: DIGO0.25 PO (19:59)
[2017-10-11] MEDS ORDERED: BUDE6HFA INH (19:59)
== END 2017-10-11 14:20 | disposition short-term general hospital (02) | DRG 190 ==
PROVIDERS: ADMIT Physical Medicine & Rehabilitation Spinal Cord Injury Medicine; ATTEND Internal Medicine Pulmonary Disease
DX: J44.1 Chronic obstructive pulmonary disease with (acute) exacerbation (principal); J96.21 Acute and chronic respiratory failure with hypoxia; I47.2 Ventricular tachycardia; L89.150 Pressure ulcer of sacral region, unstageable; A41.9 Sepsis, unspecified organism; J18.9 Pneumonia, unspecified organism; E46 Unspecified protein-calorie malnutrition; J96.22 Acute and chronic respiratory failure with hypercapnia; I42.9 Cardiomyopathy, unspecified; G81.10 Spastic hemiplegia affecting unspecified side; N39.0 Urinary tract infection, site not specified; I11.0 Hypertensive heart disease with heart failure; I27.20 Pulmonary hypertension, unspecified; I50.9 Heart failure, unspecified; I48.2 Chronic atrial fibrillation; M48.02 Spinal stenosis, cervical region; D72.829 Elevated white blood cell count, unspecified; M48.061 Spinal stenosis, lumbar region without neurogenic claudication; G89.29 Other chronic pain; M54.5 Low back pain; K21.9 Gastro-esophageal reflux disease without esophagitis; F32.9 Major depressive disorder, single episode, unspecified; R26.9 Unspecified abnormalities of gait and mobility; R53.81 Other malaise; D50.0 Iron deficiency anemia secondary to blood loss (chronic); M47.892 Other spondylosis, cervical region; R74.0 Nonspecific elevation of levels of transaminase and lactic acid dehydrogenase [LDH]; D86.9 Sarcoidosis, unspecified; M47.812 Spondylosis without myelopathy or radiculopathy, cervical region; I27.81 Cor pulmonale (chronic); M13.0 Polyarthritis, unspecified; J44.0 Chronic obstructive pulmonary disease with (acute) lower respiratory infection; F41.9 Anxiety disorder, unspecified; E55.9 Vitamin D deficiency, unspecified; I95.9 Hypotension, unspecified; F06.31 Mood disorder due to known physiological condition with depressive features; T45.515A Adverse effect of anticoagulants, initial encounter; Z79.01 Long term (current) use of anticoagulants; Z99.81 Dependence on supplemental oxygen; Z86.73 Personal history of transient ischemic attack (TIA), and cerebral infarction without residual deficits; Z95.2 Presence of prosthetic heart valve; Z88.0 Allergy status to penicillin; Z88.6 Allergy status to analgesic agent; Z88.8 Allergy status to other drugs, medicaments and biological substances; Z85.828 Personal history of other malignant neoplasm of skin; Z82.49 Family history of ischemic heart disease and other diseases of the circulatory system; Z87.891 Personal history of nicotine dependence; Z99.3 Dependence on wheelchair; Z74.01 Bed confinement status
CPT/HCPCS: 36415; 36600; 71045; 71046; 76700; 80048; 80053; 80162; 81003; 82306; 82375; 82607; 82728; 82805; 83520; 83735; 84100; 84134; 84145; 84439; 84443; 84630; 85025; 85027; 85610; 86705; 86709; 86803; 87040; 87070; 87077; 87086; 87186; 87340; 92523; 92610; 93005; 93970; 94640; 97110; 97116; 97162; 97167; 97530; 97535; 97542; G0515; J3370; J7040; J7512; J7620